=== PATIENT | male | born 1995 | race African-American/Black ===

== ENCOUNTER 2021-01-06 16:18 | Emergency (ER) | payer OTHER ==
[~2021-01-06] VITALS: Ht 185.4 cm; Wt 77.0 kg
--- NOTE | 2021-01-06 16:39 | NUR ---
Dr. Fermin at bedside.
[2021-01-06] MEDS ORDERED: LORazepam 1 MG tablet PO ONE (16:40)
[2021-01-06 16:46] LABS: BASOPHILS # (AUTO) 0.1 X10'3 (0-0.2); BASOPHILS % (AUTO) 0.6 % (0-1); EOSINOPHILS # (AUTO) 0.2 X10'3 (0-0.9); EOSINOPHILS % (AUTO) 1.5 % (0-6); HEMATOCRIT 44.9 % (42.0-52.0); LYMPHOCYTES # (AUTO) 3.9 X10'3 (1.1-4.8); LYMPHOCYTES % (AUTO) 37.1 % (21-51); MEAN CORPUSCULAR HGB CONC 33.3 g/dL (33.0-36.5); MEAN CORPUSCULAR VOLUME 90.1 FL (78-98); MEAN PLATELET VOLUME 7.2 FL (7.4-10.4); MONOCYTES % (AUTO) 9.2 % (2-12); NEUTROPHILS # (AUTO) 5.5 X10'3 (1.8-7.7); NEUTROPHILS % (AUTO) 51.6 % (42-75); PLATELET COUNT 535 X10'3 (140-440); RED BLOOD COUNT 4.98 X10'6 (4.70-6.10); RED CELL DISTRIBUTION WIDTH 13.6 % (11.5-14.5); WHITE BLOOD COUNT 10.6 X10'3 (4.5-11.0)
--- NOTE | 2021-01-06 16:58 | NUR ---
per no iv needed at this time.No iv fluids per kayy Reich to drink po fluids.
[2021-01-06 16:59] LABS: ALANINE AMINOTRANSFERASE 21 U/L (12-78); ALBUMIN 3.8 G/DL (3.4-5.0); ALBUMIN/GLOBULIN RATIO 0.8 (1.1-1.5); ALKALINE PHOSPHATASE 103 IU/L (46-116); ANION GAP 15 (8-16); ASPARTATE AMINO TRANSFERASE 22 U/L (10-37); BILIRUBIN,TOTAL 0.4 MG/DL (0.1-1.0); BLOOD UREA NITROGEN 6 MG/DL (7-18); BUN/CREATININE RATIO 5.5 (5.4-32.0); CHLORIDE 103 MMOL/L (99-107); GLUCOSE 138 MG/DL (70-104); SODIUM 142 MMOL/L (135-145); TOTAL PROTEIN 8.6 G/DL (6.4-8.2); eGFR 82 ML/MIN
--- NOTE | 2021-01-06 17:12 | NUR ---
k 3.0 yoan elliott.
[2021-01-06] MEDS ORDERED: potassium Cl 20 mEq SR tablet PO STA (17:21)
[2021-01-06] MEDS ORDERED: hydrOXYzine 25 MG tablet PO ONE (17:55)
[2021-01-06] MEDS ORDERED: normal saline 1000ML IV soln IVB ONE (17:55)
[2021-01-06 19:16] VITALS: BP 137/86
== END 2021-01-06 19:19 | disposition home or self-care (01) ==
LOC: ER 16:19
DX: F41.9 Anxiety disorder, unspecified (principal); F17.200 Nicotine dependence, unspecified, uncomplicated; F12.90 Cannabis use, unspecified, uncomplicated
CPT/HCPCS: 36415; 80053; 85025; 93005; 96360; 99285; J7030; Q0177